=== PATIENT | male | born 1955 | race Caucasian/White ===

== ENCOUNTER → 2018-01-11 10:24 | Outpatient (CLI) | payer OTHER, SELFPAY ==
--- NOTE | 2018-01-11 | DI.MRI.S_ITS ---
PROCEDURE: MR BRAIN (IAC) WWO CON INDICATIONS: Abnormal electrocardiogram [ECG] [EKG]. The patient gives an additional history of left ear ringing and balance getting worse. TECHNIQUE: Noncontrast sagittal T1 spin echo, axial FLAIR, axial gradient echo, axial diffusion and ADC through the brain. Axial thin-slice 3D CISS, coronal TruFISP, axial T1 spin echo with fat saturation through the internal auditory canals. After the administration of contrast, thin slice axial and coronal T1 spin echo with fat saturation through the internal auditory canals, and axial T1 spin echo with fat saturation through the brain. COMPARISON: [facility], CT, HEAD WITHOUT CONTRAST, 09/17/2014, 17:31. FINDINGS: Image quality: Excellent. Cerebellopontine angles: No cerebellopontine angle masses. The inner ear structures appear normally formed. No suspicious enhancement in the internal auditory canal or along the courses of the 7th and 8th cranial nerves. No bruna vascular loops are seen into the internal auditory canals. CSF spaces: Ventricles are normal in size and shape. No extra-axial fluid collections. Basal cisterns are patent. Brain: No intracranial bleeds or mass effects. Cole-white matter interface is intact. No abnormal intracranial enhancement. Brain parenchymal volume loss can be seen. Mild chronic small vessel ischemic changes can be seen. Diffusion weighted images demonstrate no acute ischemic insults. Brainstem appears normal. Normal intravascular flow voids are present. Skull and face: Calvarial marrow signal is normal. Orbits appear normal. Sinuses: Sinuses and mastoids are clear. IMPRESSION: No imaging explanation is found for this patient's presenting symptoms. Specifically, no masses or abnormal enhancement can be seen involving the internal auditory canals or the cerebellopontine angle cisterns. No masses or abnormal enhancement can be seen. Note is made of age-appropriate brain parenchymal volume loss and chronic small vessel ischemic changes. Dictated by: Omi Sarmiento M.D. on 01/11/2018 at 11:33 Approved by: Omi Sarmiento M.D. on 01/11/2018 at 11:35
[2018-01-11 11:08] LABS: BUN Creatinine Ratio 18.9 (6-22); Blood Urea Nitrogen 17 mg/dL (9-20); Calcium 9.6 mg/dL (8.4-10.2); Carbon Dioxide 30 mmol/L (22-32); Chloride 103 mmol/L (98-107); Estimated Glomerular Filt Rate > 60.0 mL/min (>60); Glucose 100 mg/dL (80-110); HEMOLYSIS < 15 (0-50); Potassium 4.8 mmol/L (3.4-5.1); Sodium 143 mmol/L (137-145)
== END ==
PROVIDERS: Family Provider Family Medicine; PCP Family Medicine; Visit Provider Family Medicine
DX: R42 Dizziness and giddiness (principal); H93.12 Tinnitus, left ear; R94.31 Abnormal electrocardiogram [ECG] [EKG]; R26.81 Unsteadiness on feet
CPT/HCPCS: 36415; 70553; 80048; A9579

== ENCOUNTER → 2018-03-01 10:09 | Outpatient (CLI) | payer MEDICARE, SELFPAY ==
[2018-03-01 10:47] LABS: Hematocrit 45.6 % (41-53); Hemoglobin 15.4 g/dL (13.5-17.5); Mean Corpuscular HGB Conc 33.8 % (30-36); Mean Corpuscular Volume 103.4 fL (80-100); Platelet Count 326 X10^3/uL (150-400); Red Blood Cell Count 4.41 X10^6/uL (4.5-5.9); Red Cell Distribution Width 13.5 % (11.6-14.8); White Blood Cell Count 6.6 X10^3/uL (4.5-11.0)
[2018-03-01 12:15] LABS: Neutrophils Absolute Manual 3894 /uL (3000-5900); RBC Morphology Normal Morphology; Total Cells Counted 100
[2018-03-01 12:46] LABS: Alanine Aminotransferase 32 IU/L (21-72); Albumin 4.5 g/dL (3.5-5.0); Albumin Globulin Ratio 1.2 (1.0-2.8); Alkaline Phosphatase 80 U/L (38-126); Aspartate Aminotransferase 32 IU/L (17-59); Bilirubin Total 0.4 mg/dL (0.2-1.3); Blood Urea Nitrogen 15 mg/dL (9-20); Calcium 10.5 mg/dL (8.4-10.2); Carbon Dioxide 29 mmol/L (22-32); Chloride 102 mmol/L (98-107); Estimated Glomerular Filt Rate > 60.0 mL/min (>60); Globulin 3.8 g/dL (1.7-4.1); Glucose 92 mg/dL (80-110); HEMOLYSIS < 15 (0-50); Potassium 4.8 mmol/L (3.4-5.1); Sodium 142 mmol/L (137-145); Total Protein 8.3 g/dL (6.3-8.2)
== END ==
PROVIDERS: Family Provider Family Medicine; PCP Family Medicine; Visit Provider Physician Assistant
DX: R22.1 Localized swelling, mass and lump, neck (principal)
CPT/HCPCS: 36415; 80053; 85025

== ENCOUNTER → 2018-03-10 08:44 | Outpatient (CLI) | payer MEDICARE, MEDICAID, SELFPAY ==
--- NOTE | 2018-03-10 08:48 | DI.US.S_ITS ---
PROCEDURE: US SOFT TISSUE HEAD AND NECK INDICATIONS: MASS JUST BELOW RIGHT JAWLINE TECHNIQUE: Real-time scanning was performed of the neck region of interest, with image documentation. COMPARISON: None. FINDINGS: Within the right submandibular region, likely centered within the submandibular gland, there is a cystic structure that is largely hypoechoic with areas of anechogenicity, demonstrating posterior acoustical enhancement. Thin internal septations are present within this cystic structure that demonstrates peripheral vascularity. The structure measures 1.6 x 1.3 x 1.8 cm. IMPRESSION: Complex cystic lesion within or adjacent to the right mid submandibular gland could potentially represent a small focus of infection, such as a developing abscess. Prominently dilated submandibular duct is felt to be less likely. Congenital thyroglossal remnant is felt to be unlikely. A three-month followup ultrasound of the neck is recommended. Dictated by: Vjiay Bruce M.D. on 03/10/2018 at 9:34 Approved by: Vijay Bruce M.D. on 03/10/2018 at 9:37
== END ==
PROVIDERS: Family Provider Family Medicine; PCP Internal Medicine; Visit Provider Physician Assistant
DX: R22.1 Localized swelling, mass and lump, neck (principal)
CPT/HCPCS: 76536

== ENCOUNTER → 2018-04-19 09:23 | Outpatient (CLI) | payer MEDICARE, MEDICAID, SELFPAY ==
--- NOTE | 2018-04-19 | DI.CT.S_ITS ---
PROCEDURE: CT SOFT TISSUE NECK W CON INDICATIONS: SUBMANDIBULAR RIGHT NECK MASS TECHNIQUE: After the administration of intravenous contrast, 3.0 mm axial sections acquired from the sella to the aortic arch. Additional oblique axial 3.0 mm sections acquired through the pharynx. 3 mm thick coronal and sagittal reformats were generated. For radiation dose reduction, the following was used: automated exposure control. COMPARISON: [facility], , US SOFT TISSUE HEAD AND NECK, 03/10/2018, 9:01. FINDINGS: Image quality: Excellent. Lymph nodes: No enlarged lymph nodes seen throughout the neck. Vessels: Visualized vasculature appears patent. Neck spaces: The oropharynx, nasopharynx, and pharynx demonstrate no mucosal lesions. The vocal cords, false vocal cords, pyriform sinuses, epiglottis, vallecula, and tongue base all appear normal. Extramucosal spaces appear unremarkable. Glands: The parotid and submandibular glands appear normal on the left but on the right contiguous with the posterior border of the right submandibular gland immediately below the angle of the jaw there is a complex mass which appears septated, with thin peripheral soft tissue margination, and measuring up to 1.5 x 1.3 x 1.6 cm, equivalent to the overall size of the same structure seen by prior ultrasound imaging 03/10/18. No new lesion in this area has developed. Thyroid gland appears normal. Miscellaneous: Visualized brain and orbits appear normal. Lung apices appear clear. Superficial soft tissues appear normal. Bones: No suspicious bony lesions. Visualized sinuses and mastoids appear unremarkable. IMPRESSION: There is persistence of a mixed cystic and solid mass at the posterior border of the right submandibular gland, immediately below the angle of the jaw and in direct apposition to the submandibular gland posterior border. It is unclear whether this is originating from and emanating posteriorly to the gland or represents a discrete entity coincidentally in apposition to the submandibular gland itself. The appearance is worrisome for malignancy, and the structure is better visualized by ultrasound than by CT scanning. It may represent a centrally necrotic lymph node. Dictated by: Ryne Smart M.D. on 04/19/2018 at 13:22 Approved by: Ryne Smart M.D. on 04/19/2018 at 13:31
[2018-04-19 09:51] LABS: BUN Creatinine Ratio 17.8 (6-22); Blood Urea Nitrogen 16 mg/dL (9-20); Estimated Glomerular Filt Rate > 60.0 mL/min (>60)
== END ==
PROVIDERS: Family Provider Family Medicine; PCP Internal Medicine; Visit Provider Otolaryngology
DX: R22.1 Localized swelling, mass and lump, neck (principal); K11.9 Disease of salivary gland, unspecified
CPT/HCPCS: 36415; 70491; 82565; 84520; Q9967